=== PATIENT | male | born 1995 | race Two or more races ===

== ENCOUNTER 2021-02-09 11:36 | Emergency (ER) | payer MEDICAID ==
[~2021-02-09] VITALS: Ht 154.9 cm; Wt 59.0 kg
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
--- NOTE | 2021-02-09 12:16 | NUR ---
wheeled patient to ct
--- NOTE | 2021-02-09 12:55 | NUR ---
Patient discharged to home in stable condition. Written and verbal after care instructions given. Patient verbalizes understanding of instruction. Pt ambulatory with a steady gait
[2021-02-09 12:57] VITALS: BP 128/82
== END 2021-02-09 12:57 | disposition home or self-care (01) ==
LOC: ER 11:45
DX: S00.83XA Contusion of other part of head, initial encounter (principal); Y08.89XA Assault by other specified means, initial encounter; Y93.89 Activity, other specified; Y92.89 Other specified places as the place of occurrence of the external cause; Y99.8 Other external cause status
CPT/HCPCS: 70450; 99284; A6403